=== PATIENT | male | born 1975 | race Caucasian/White ===

== ENCOUNTER 2019-05-20 09:36 | Emergency (ER) | payer OTHER ==
[2019-05-20 09:55] VITALS: BP 157/86
--- NOTE | 2019-05-20 10:10 | UC ---
Bite Injury/Animal HPI - HPI Summary HPI Summary: 44-year-old male comes in with a chief complaint of tick bite on the abdomen. He noticed it today and when he was removing it he feels like maybe the head is the left than the skin. It is a little tender to palpation. No bull's-eye rash or extensive cellulitis. Patient feels well otherwise. - History of Current Complaint Chief Complaint: UCBiteInjury Stated Complaint: TICK Time Seen by Provider: 05/20/19 09:54 Pain Intensity: 4 - Allergies/Home Medications Allergies/Adverse Reactions: Allergies Allergy/AdvReac Type Severity Reaction Status Date / Time No Known Allergies Allergy Verified 05/20/19 09:49 Home Medications: Home Medications DOXYcycline CAP(*) [DOXYcycline 100MG CAP(*)] 100 mg PO BID #30 cap 05/20/19 [Rx ] Fluticasone NASAL SPRAY 50MCG* [Flonase NASAL SPRAY 50MCG*] 2 spray BOTH NARES DAILY 05/20/19 [History Confirmed 05/20/19] LoraTADine TAB(NF) [Claritin 10 MG TAB(NF)] 10 mg PO DAILY 05/20/19 [History Confirmed 05/20/19] PMH/Surg Hx/FS Hx/Imm Hx Previously Healthy: Yes - Lyme disease in the past, successfully treated - Surgical History Surgical History: Yes Surgery Procedure, Year, and Place: Tonsillectomy, ~1980 - Family History Known Family History: Positive: Non-Contributory - Social History Alcohol Use: Occasionally Substance Use Type: None Smoking Status (MU): Never Smoked Tobacco Review of Systems All Other Systems Reviewed And Are Negative: Yes Constitutional: Positive: Negative Skin: Positive: Other - see hpi Eyes: Positive: Negative ENT: Positive: Negative Respiratory: Positive: Negative Cardiovascular: Positive: Negative Gastrointestinal: Positive: Negative Motor: Positive: Negative Neurovascular: Positive: Negative Musculoskeletal: Positive: Negative Neurological/Mental Status: Positive: Negative Psychological: Positive: Negative Is Patient Immunocompromised?: No Physical Exam Triage Information Reviewed: Yes Appearance: Well-Appearing, No Pain Distress, Well-Nourished Vital Signs: Initial Vital Signs Temp 98.5 F 05/20/19 09:48 Pulse 68 05/20/19 09:48 Resp 16 05/20/19 09:48 BP 157/86 05/20/19 09:48 Pulse Ox 96 05/20/19 09:48 Vital Signs Reviewed: Yes Eye Exam: Normal Eyes: Positive: Conjunctiva Clear Neck: Positive: Supple Respiratory: Positive: No respiratory distress Musculoskeletal: Positive: Strength Intact, ROM Intact Neurological: Positive: Alert, Muscle Tone Normal Psychological: Positive: Age Appropriate Behavior Skin: Positive: Other - On the right lower abdomen there is 1.5 cm area of erythema with a 1 mm black foreign body in the skin. I was able to remove that with splinter forceps. No bull's-eye rash. Bite Injury Course/Dx - Course Course Of Treatment: No bull's-eye rash. There was a small amount of erythema around the tick bite. After discussing with the patient signs and symptoms of Lyme disease the plan is to treat with doxycycline 200 mg single dose. However if the rash spreads or becomes bull's-eye rash or is any signs or symptoms of Lyme disease he will treat with doxycycline 100 mg twice a day for 14 days. Patient reevaluated if worse or any questions or concerns. - Differential Dx/Diagnosis Provider Diagnosis: Tick bite of abdomen Discharge ED - Sign-Out/Discharge Documenting (check all that apply): Patient Departure All imaging exams completed and their final reports reviewed: No Studies - Discharge Plan Condition: Stable Disposition: HOME Prescriptions: DOXYcycline CAP(*) [DOXYcycline 100MG CAP(*)] 100 mg PO BID #30 cap Patient Education Materials: Tick Bite (ED) Referrals: Rajiv Carvalho NP [Nurse Practitioner] - [facility] [Outside] Additional Instructions: FOLLOW UP WITH YOUR DOCTOR IF NOT COMPLETELY IMPROVED. For this tick bite, take doxycycline 200 mg (to 100 mg tablets) once today. If you have any signs of Lyme disease with a spreading rash bull's-eye rash or other Lyme disease symptoms, take the doxycycline 100 mg twice a day for 14 days. GET REEVALUATED IF NOT IMPROVING OR WORSE OR ANY QUESTIONS OR CONCERNS. - Billing Disposition and Condition Condition: STABLE Disposition: Home
== END 2019-05-20 10:18 | disposition home or self-care (01) ==
LOC: UCCORT 09:36
DX: S30.861A Insect bite (nonvenomous) of abdominal wall, initial encounter (principal); W57.XXXA Bitten or stung by nonvenomous insect and other nonvenomous arthropods, initial encounter; Y92.9 Unspecified place or not applicable
CPT/HCPCS: 99202; G0463